=== PATIENT | female | born 1935 | race Caucasian/White ===

== ENCOUNTER 2016-12-03 05:20 | Emergency (ER) | payer MEDICARE ==
[2016-12-03] MEDS ORDERED: Ibuprofen TAB* 400 MG PO ONE (06:16)
[2016-12-03 06:32] LABS: Comments Flag Yes; Hematocrit 37 % (35-47); Hemoglobin 12.4 g/dl (12.0-16.0); Mean Corpuscular HGB Conc 34 g/dl (31-36); Mean Corpuscular Hemoglobin 40 pg (27-31); Mean Platelet Volume 8 um3 (7.4-10.4); Red Blood Count 3.08 10^6/ul (4.0-5.4); Red Cell Distribution Width 14 % (10.5-15)
[2016-12-03 06:33] LABS: Add Diff/Slide Review? Slide Review Added; Mean Corpuscular Volume 120 fL (80-97)
[2016-12-03 06:45] LABS: BUN/Creatinine Ratio 18.2 (8-20); C Reactive Protein 54.36 mg/L (< 5.00); Calcium 9.3 mg/dL (8.6-10.3); EGFR African American 79.7 (>60); Potassium 3.9 mmol/L (3.5-5.0)
--- NOTE | 2016-12-03 06:57 | ED ---
Kelley Irving Rebecca, scribed for Jason Davidson MD on 12/03/16 at 0535 . Upper Extremity Pain - HPI Summary HPI Summary: Pt is a 81 y/o F who presents to ED c/o L hand swelling and associated pain. Sx began gradually 1 week ago and have been constant since onset, waxing and waning in severity. Reports that pain this morning was worse than previously. Pain is discrete to the L hand, characterized as aching and currently ranked 10/ 10. Sx aggravated and alleviated by nothing, unchanged by ASA. Denies any other sx including fever. Has not been evaluated by PCP for current sx. - History of Current Complaint Stated Complaint: LT HAND SWELLING Time Seen by Provider: 12/03/16 05:30 Hx Obtained From: Patient Onset/Duration: Started Weeks Ago - 1 week ago, Still Present Timing: Constant Severity Initially: Moderate Severity Currently: Severe - 10/10 Pain Location: Hand - Left Character: Aching Aggravating Factor(s): Nothing Alleviating Factor(s): Nothing Associated Signs & Symptoms: Positive: Negative - Allergies/Home Medications Allergies/Adverse Reactions: Allergies Allergy/AdvReac Type Severity Reaction Status Date / Time Acetaminophen [From Vicodin] Allergy Dizziness Verified 12/03/16 06:14 Hydrocodone [From Vicodin] Allergy Dizziness Verified 12/03/16 06:14 PMH/Surg Hx/FS Hx/Imm Hx Endocrine/Hematology History: 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 HYSTERECTOMY. MULTIPLE SURGERIES FOR BONE FXS Infectious Disease History: No Infectious Disease History: Denies: Traveled Outside the [place] in Last 30 Days - Family History Known Family History: Positive: Cardiac Disease, Diabetes, Other - arthritis - Social History Lives: With Family Alcohol Use: Occasionally Hx Substance Use: No Hx Tobacco Use: No Smoking Status (MU): Never Smoked Tobacco Review of Systems Negative: Fever Positive: Arthralgia - L hand swelling and associated pain All Other Systems Reviewed And Are Negative: Yes Physical Exam Triage Information Reviewed: Yes Vital Signs On Initial Exam: Initial Vitals Temp Pulse Resp BP Pulse Ox 97.4 F 76 18 147/62 97 12/03/16 05:35 12/03/16 05:35 12/03/16 05:35 12/03/16 05:35 12/03/16 05:35 Vital Signs Reviewed: Yes Appearance: Positive: Well-Appearing, No Pain Distress Skin: Positive: Warm Head/Face: Positive: Normal Head/Face Inspection Eyes: Positive: JAYSHREE ENT: Positive: Hearing grossly normal Neck: Positive: Supple Respiratory/Lung Sounds: Positive: Breath Sounds Present Musculoskeletal: Positive: Other - mild warmth swelling and tenderness to lt hand radial aspect Neurological: Positive: Sensory/Motor Intact, Alert, Oriented to Person Place, Time Psychiatric: Positive: Affect/Mood Appropriate Diagnostics - Vital Signs Vital Signs Temp Pulse Resp BP Pulse Ox 12/03/16 05:35 97.4 F 76 18 147/62 97 - Laboratory Lab Results: Lab Results 12/03/16 12/03/16 Range/Units 06:04 06:04 WBC 7.0 (3.5-10.8) 10^3/ul RBC 3.08 L (4.0-5.4) 10^6/ul Hgb 12.4 (12.0-16.0) g/dl Hct 37 (35-47) % MCV 120 H (80-97) fL MCH 40 H (27-31) pg MCHC 34 (31-36) g/dl RDW 14 (10.5-15) % Plt Count 554 H (150-450) 10^3/ul MPV 8 (7.4-10.4) um3 Neut % (Auto) 76.9 (38-83) % Lymph % (Auto) 9.2 L (25-47) % Mcpherson % (Auto) 12.7 H (1-9) % Eos % (Auto) 0.3 (0-6) % Baso % (Auto) 0.9 (0-2) % Absolute Neuts (auto) 5.4 (1.5-7.7) 10^3/ul Absolute Lymphs (auto) 0.6 L (1.0-4.8) 10^3/ul Absolute Monos (auto) 0.9 H (0-0.8) 10^3/ul Absolute Eos (auto) 0 (0-0.6) 10^3/ul Absolute Basos (auto) 0.1 (0-0.2) 10^3/ul Absolute Nucleated RBC 0 10^3/ul Nucleated RBC % 0 Sodium 136 (133-145) mmol/L Potassium 3.9 (3.5-5.0) mmol/L Chloride 102 (101-111) mmol/L Carbon Dioxide 28 (22-32) mmol/L Anion Gap 6 (2-11) mmol/L BUN 16 (6-24) mg/dL Creatinine 0.88 (0.51-0.95) mg/dL Est GFR ( Amer) 79.7 (>60) Est GFR (Non-Af Amer) 62.0 (>60) BUN/Creatinine Ratio 18.2 (8-20) Glucose 187 H (70-100) mg/dL Calcium 9.3 (8.6-10.3) mg/dL C-Reactive Protein 54.36 H (< 5.00) mg/L Result Diagrams: 12/03/16 06:04 12/03/16 06:04 Lab Statement: Any lab studies that have been ordered have been reviewed, and results considered in the medical decision making process. - Radiology Hand XR Radiology Interpretation Completed By: ED Physician - DJD Re-Evaluation - Re-Evaluation First Eval Re-Evaluation Time: 06:56 - results d/w pt Change: Improved Course/Dx - Course Assessment/Plan: Pt is a 81 y/o F with a CC of L hand swelling and severe associated pain for 1 week. Denies any other sx including fever. Hand XR reveals DJD. Pt will be D/C to home with a dx of hand swelling with a followup with her PCP. - Diagnoses Provider Diagnoses: Hand swelling Discharge - Discharge Plan Condition: Stable Disposition: HOME Patient Education Materials: Swollen Joint (ED) Referrals: Vianca Dia MD [Primary Care Provider] - 3 Days (Follow up with your primary care physician in the next 3 days. ) The documentation as recorded by the Kelley horn Rebecca accurately reflects the service I personally performed and the decisions made by , Jason Davidson MD.
[2016-12-03 07:03] VITALS: BP 109/52
--- NOTE | 2016-12-03 07:46 | RAD ---
HISTORY: Left hand pain and swelling COMPARISONS: None VIEWS: 2, Frontal and lateral views of the left hand FINDINGS: BONE DENSITY: There is diffuse osteopenia. BONES: There is no displaced fracture. JOINTS: There is osteoarthritis of the first CMC articulation. There is mild osteoarthritis of interphalangeal joints. ALIGNMENT: There is no dislocation. SOFT TISSUES: Unremarkable. OTHER FINDINGS: None. IMPRESSION: OSTEOARTHRITIS. NO ACUTE OSSEOUS INJURY. IF SYMPTOMS PERSIST, RECOMMEND REPEAT IMAGING.
== END 2016-12-03 07:02 | disposition home or self-care (01) ==
LOC: ED 05:20
DX: R60.0 Localized edema (principal)
CPT/HCPCS: 36415; 80048; 85025; 86140; 99282; A9270-GY